=== PATIENT | female | born 1975 | race African-American/Black ===

== ENCOUNTER 2016-10-24 18:14 | Emergency (ER) | payer OTHER ==
[2016-10-24 18:38] VITALS: BP 148/98; PULSE 78; TEMP 98.2; BMI 29.0
[2016-10-24] MEDS ORDERED: ACETAMINOPHEN 325 MG TABLET (FP) PO ONE (19:02)
[2016-10-24] MEDS ORDERED: ACETAMINOPHEN 325 MG TABLET (FP) ONE (19:06)
--- NOTE | 2016-10-24 20:46 | PDOC ---
History of Present Illness - General Chief Complaint: Back Pain Stated Complaint: FALL/INJURY Time Seen by Provider: 10/24/16 18:51 History Source: Patient Exam Limitations: No Limitations - History of Present Illness Initial Comments: 10/24/16 20:41 CC PAIN LEFT UPPER ARM, LEFT KNEE, LEFT HIP POST SLIP IN FALL IN SNOW TODAY Occurred: reports: just prior to arrival Severity: reports: mild Pain Location: reports: lower extremity, pelvis, upper extremity Method of Injury: Yes: fall Past History - Past Medical History Allergies/Adverse Reactions: Allergies Allergy/AdvReac Type Severity Reaction Status Date / Time No Known Allergies Allergy Verified 10/24/16 18:34 Home Medications: Ambulatory Orders Acetaminophen [Tylenol .Extra-Strength -] 1,000 mg PO Q4H PRN #1 tablet Labetalol HCl 300 mg PO TID #90 tablet 02/05/12 Nifedipine [Nifedipine ER] 60 mg PO DAILY@1045 #1 02/05/12 Asthma: No Cancer: No Cardiac Disorders: No Diabetes: No HTN: Yes Seizures: No Thyroid Disease: No - Psycho/Social/Smoking Cessation Hx Anxiety: No Suicidal Ideation: No Smoking History: Never smoked Have you smoked in the past 12 months: No Information on smoking cessation initiated: No Hx Alcohol Use: No Drug/Substance Use Hx: No Substance Use Type: None Hx Substance Use Treatment: No Review of Systems - Review of Systems Constitutional: No: Chills, Fever, Malaise HEENTM: No: Symptoms Reported Respiratory: No: Symptoms reported ABD/GI: No: Symptoms Reported : No: Symptoms Reported Musculoskeletal: Yes: Back Pain, Joint Pain, Joint Swelling, Muscle Pain. No: Symptoms Reported, Joint Stiffness Integumentary: No: Symptoms Reported Neurological: No: Symptoms reported, Headache, Numbness, Paresthesia, Ataxia *Physical Exam - Vital Signs Last Vital Signs Temp Pulse Resp BP Pulse Ox 98.2 F 78 18 148/98 100 10/24/16 18:35 10/24/16 18:35 10/24/16 18:35 10/24/16 18:35 10/24/16 18:35 - Physical Exam General Appearance: Yes: Appropriately Dressed. No: Apparent Distress HEENT: positive: TMs Normal, Pharynx Normal Neck: positive: Supple. negative: Tender, Rigid, Tender lateral, Tender midline Respiratory/Chest: negative: Lungs Clear Musculoskeletal: positive: Other (TENDER TO LEFT HUMERUS, MID SHIFT WITH FROM ELBOW, SHOULDER; TENDER TO LATERAL LEFT KNEE; TENDER TO LEFT HIP PELVIS; NO TENDERNESS TO CERVICAL THORACIC, LUMBAR SPINE, NO DERFORMTIES) ED Treatment Course - RADIOLOGY Radiology Studies Ordered: Category Date Time Status HIP & PELVIS-LEFT [RAD] Stat Radiology 10/24/16 19:02 Completed HUMERUS-LEFT [RAD] Stat Radiology 10/24/16 19:01 Completed KNEE 2 POS-LEFT [RAD] Stat Radiology 10/24/16 19:03 Completed - Medications Given in the ED: ED Medications Discontinued Medications Generic Name Dose Route Start Last Admin Trade Name Freq PRN Reason Stop Dose Admin Acetaminophen 650 mg 10/24/16 19:02 10/24/16 19:07 Tylenol - PO 10/24/16 19:03 650 mg ONCE ONE Administration Medical Decision Making - Medical Decision Making 10/24/16 20:45 SOME PAIN RELIEVE POST TYLENOL'; XRAYS= NO FXs; PT REFUSES STRONGER MEDS AT THIS TIME; HAS ORTHO FOLLOW UP IF NEEDED *DC/Admit/Observation/Transfer Diagnosis at time of Disposition: Multiple bruises - Discharge Dispostion Disposition: HOME Condition at time of disposition: Stable Admit: No - Patient Instructions Additional Instructions: PLEASE FOLLOW UP WITH LOCAL MD; TYLENOL FOR PAINS; RETURN TO ED FOR ANY CONCERNS THIS WEEK
== END 2016-10-24 20:55 | disposition home or self-care (01) ==
LOC: JERFT 18:14
DX: S40.022A Contusion of left upper arm, initial encounter (principal); S70.02XA Contusion of left hip, initial encounter; S80.02XA Contusion of left knee, initial encounter; W00.0XXA Fall on same level due to ice and snow, initial encounter; Y93.89 Activity, other specified; Y92.480 Sidewalk as the place of occurrence of the external cause; I10 Essential (primary) hypertension
CPT/HCPCS: 73060-TC-LT; 73523-TC; 73560-TC-LT; 99281-25

== ENCOUNTER → 2022-09-13 | Day surgery (SDC) | payer OTHER | END | disposition home or self-care (01) | LOC: JRADUS-SUR 10:19 | PROVIDERS: ATTEND Family Medicine | PROC: 0H9U3ZX Drainage of Left Breast, Percutaneous Approach, Diagnostic (ICD-10-PCS; principal; 2022-09-13) | DX: D24.2 Benign neoplasm of left breast (principal) | CPT/HCPCS: 19083; 87899; 88305-TC; 88342-TC; A4648 ==

== ENCOUNTER → 2022-10-30 | Day surgery (SDC) | payer OTHER | END | disposition home or self-care (01) | LOC: JRADUS-SUR 14:33 | PROVIDERS: ATTEND Surgery Surgical Oncology | PROC: BH01ZZZ Plain Radiography of Left Breast (ICD-10-PCS; principal; 2022-10-30) | DX: D24.2 Benign neoplasm of left breast (principal) | CPT/HCPCS: 19281; A4648 ==

== ENCOUNTER 2022-11-29 04:26 | Day surgery (SDC) | payer OTHER ==
[2022-11-28 10:55] VITALS: BMI 31.9
[2022-11-29] MEDS ORDERED: BUPIVACAINE HCL/PF 0.5% (5MG/ML) 10 ML VIAL ONE (11:06)
[2022-11-29] MEDS ORDERED: MIDAZOLAM HCL 2 MG/2 ML SINGLE DOSE VIAL ONE ×2 (14:45→15:27)
[2022-11-29] MEDS ORDERED: LIDOCAINE HCL/PF 2% SDV 5ML VIAL ONE (15:26)
[2022-11-29] MEDS ORDERED: PROPOFOL 20 ML ONE (15:33)
[2022-11-29] MEDS ORDERED: ONDANSETRON 4 MG/2 ML VIAL ONE (15:34)
[2022-11-29] MEDS ORDERED: LIDOCAINE HCL 0.5% EPINEPHRINE 1:200,000 50 ML VIAL IJ ONE (15:36)
[2022-11-29] MEDS ORDERED: BUPIVACAINE HCL/PF 0.5% (5 MG/ML) 30 ML VIAL IJ ONE (15:48)
[2022-11-29] MEDS ORDERED: ONDANSETRON 4 MG/2 ML VIAL IVPUSH PRN (16:12)
[2022-11-29] MEDS ORDERED: oxyCODONE HCL 5 MG TABLET PO PRN ×2 (16:12)
[2022-11-29] MEDS ORDERED: LACTATED RINGERS SOLUTION 1,000 ML IV SCH (16:15)
[2022-11-29 16:45] VITALS: RESP 18
[2022-11-29 17:05] VITALS: BP 132/78; PULSE 72; TEMP 97
== END 2022-11-29 17:40 | disposition home or self-care (01) ==
LOC: JASU-SURG 04:26
PROVIDERS: ATTEND Surgery Surgical Oncology
PROC: 0HBU0ZX Excision of Left Breast, Open Approach, Diagnostic (ICD-10-PCS; principal; 2022-11-29 14:30)
DX: D24.2 Benign neoplasm of left breast (principal)
CPT/HCPCS: 76098-TC-FY; 81025; 88307-TC

== ENCOUNTER 2024-04-22 06:23 | Emergency (ER) | payer OTHER ==
[2024-04-22 06:43] VITALS: BP 156/100; PULSE 68; RESP 20; TEMP 97.7; BMI 28.8
[2024-04-22] MEDS ORDERED: DIPHTH,PERTUSS(ACELL),TET 0.5 ML DISP.SYRIN IM ONE (07:56)
[2024-04-22] MEDS ORDERED: NIFEdipine E.R 60 MG TABLET PO ONE (08:04)
[2024-04-22] MEDS: DIPHTH,PERTUSS(ACELL),TET 0.5 ML DISP.SYRIN IM ONE (08:07)
[2024-04-22] MEDS: NIFEdipine E.R 60 MG TABLET PO SCH (08:08)
[2024-04-22] MEDS ORDERED: NIFEdipine E.R 60 MG TABLET PO SCH (10:00)
== END 2024-04-22 08:10 | disposition home or self-care (01) ==
LOC: JER 06:23
PROC: 0YQMXZZ Repair Right Foot, External Approach (ICD-10-PCS; principal; 2024-04-22)
PROC: 3E0234Z Introduction of Serum, Toxoid and Vaccine into Muscle, Percutaneous Approach (ICD-10-PCS; 2024-04-22)
DX: S91.311A Laceration without foreign body, right foot, initial encounter (principal); W25.XXXA Contact with sharp glass, initial encounter; Z23 Encounter for immunization
CPT/HCPCS: 12002-25; 90471; 90715; 99284-25